=== PATIENT | female | born 1985 | race Caucasian/White ===

== ENCOUNTER 2016-11-15 02:59 | Emergency (ER) | payer SELFPAY ==
[2016-11-15 03:08] VITALS: BP 127/65
--- NOTE | 2016-11-15 03:39 | ED ---
brent Kc Timothy, scribed for Memo Jimenes MD on 11/15/16 at 0327 . HPI Chest Pain - HPI Summary HPI Summary: Breanna Yanez is a 31 yo female presenting [place] [facility] [place] after getting out of a cab. She states she broke her fall with her right hand, but has 7/10 pain in her right chest and chin. She has bruising and abrasions to the palm of her right hand. Pt fell at approximately 0230, and has not taken anything for pain. She denies any pertinent PMHx. - History of Current Complaint Chief Complaint: EDChestWallPain Time Seen by Provider: 11/15/16 03:24 Hx Obtained From: Patient Onset/Duration: Started Minutes Ago Time of Onset: 02:30 Timing: Constant Initial Severity: Moderate Current Severity: Moderate Pain Intensity: 7 Pain Scale Used: 0-10 Numeric Chest Pain Location: Mid Sternal Chest Pain Radiates: No Aggravating Factor(s): Other: - palpation Associated Signs and Symptoms: Positive: Chest Pain - Allergy/Home Medications Allergies/Adverse Reactions: Allergies Allergy/AdvReac Type Severity Reaction Status Date / Time No Known Allergies Allergy Verified 04/12/14 10:28 PMH/Surg Hx/FS Hx/Imm Hx Endocrine/Hematology History: Denies: Hx Diabetes, Hx Thyroid Disease Cardiovascular History: Denies: Hx Hypertension Respiratory History: Denies: Hx Asthma, Hx Chronic Obstructive Pulmonary Disease (COPD) GI History: Denies: Hx Ulcer Sensory History: Reports: Hx Contacts or Glasses Opthamlomology History: Reports: Hx Contacts or Glasses Infectious Disease History: No Infectious Disease History: Denies: Hx Hepatitis, Hx Human Immunodeficiency Virus (HIV), Traveled Outside the [place] in Last 30 Days - Family History Known Family History: Positive: Other - colon cancer - Social History Alcohol Use: Occasionally Substance Use Type: Reports: None Smoking Status (MU): Current Every Day Smoker Type: Cigarettes Amount Used/How Often: 2-3 cigs per day Review of Systems Constitutional: Negative Eyes: Negative ENT: Other - chin pain Cardiovascular: Negative Positive: Chest Pain - chest wall pain Respiratory: Negative Gastrointestinal: Negative Genitourinary: Negative Musculoskeletal: Other - pain in right hand Skin: Negative Neurological: Negative Psychological: Normal All Other Systems Reviewed And Are Negative: Yes Physical Exam Triage Information Reviewed: Yes Vital Signs On Initial Exam: Initial Vitals Temp Pulse Resp BP Pulse Ox 98.2 F 101 16 127/65 98 11/15/16 03:00 11/15/16 03:00 11/15/16 03:00 11/15/16 03:00 11/15/16 03:00 Vital Signs Reviewed: Yes Appearance: Positive: Well-Appearing, No Pain Distress Skin: Positive: Warm Head/Face: Positive: Normal Head/Face Inspection Eyes: Positive: Normal ENT: Positive: Hearing grossly normal Neck: Positive: Supple Respiratory/Lung Sounds: Positive: Clear to Auscultation, Breath Sounds Present , Other - mild ant cwt to palp, no eformity Cardiovascular: Positive: RRR Abdomen Description: Positive: Nontender, Soft Bowel Sounds: Positive: Present Musculoskeletal: Positive: Other - area of tenderness and ecchymosis to rt thenar area, no eformity, from, nvi Neurological: Positive: Alert, Oriented to Person Place, Time, NV Bundle Intact Distally Psychiatric: Positive: Affect/Mood Appropriate Diagnostics - Vital Signs Vital Signs Temp Pulse Resp BP Pulse Ox 11/15/16 03:00 98.2 F 101 16 127/65 98 - Laboratory Lab Statement: Any lab studies that have been ordered have been reviewed, and results considered in the medical decision making process. - Radiology CXR Xray Interpretation: No Acute Changes - No acute disease Radiology Interpretation Completed By: ED Physician R wrist Xray Interpretation: No Acute Changes - No acute disease Radiology Interpretation Completed By: ED Physician Chest Pain Course/Dx - Course Assessment/Plan: Breanna Yanez is a 31 yo female presenting to [facility] [place] a fall in which she hurt her chest and right hand. After review of her negative CXR and negative right wrist XR, she will be discharged home with multiple contusions. - Diagnoses Provider Diagnoses: Multiple contusions Discharge - Discharge Plan Condition: Stable Disposition: HOME Patient Education Materials: Contusion in Adults (ED) Referrals: No Primary Care Phys,NOPCP [Primary Care Provider] - [facility] [Outside] - 2 Days Additional Instructions: Please follow up with your primary care physician regarding your visit to the emergency department today. Return to the emergency department with any new or recurring symptoms. The documentation as recorded by the brent escalante Timothy accurately reflects the service I personally performed and the decisions made by , Memo Jimenes MD.
--- NOTE | 2016-11-15 08:02 | RAD ---
INDICATION: Swelling and bruising to the right palm after a fall COMPARISON: None. TECHNIQUE: 2 views of the right hand were obtained. FINDINGS: The adequately corticated bones are in normal alignment. No significant focal osseous abnormality or fracture is seen. Joint spaces appear maintained. IMPRESSION: Normal right hand radiograph. If the patient's symptoms persist, follow-up imaging is recommended.
--- NOTE | 2016-11-15 08:03 | RAD ---
INDICATION: Fall COMPARISON: Chest x-ray dated July 05, 2007 TECHNIQUE: PA and lateral views of the chest were obtained. FINDINGS: The heart and mediastinum are normal in size and contour. The lungs are grossly clear. There is no evidence of large pleural effusion. Visualized bones are normal for the patient's age. There is no radiographic evidence of free air beneath the diaphragm IMPRESSION: No radiographic evidence of acute cardiopulmonary disease.
== END 2016-11-15 04:11 | disposition home or self-care (01) ==
LOC: ED 02:59
DX: S60.221A Contusion of right hand, initial encounter (principal); R07.89 Other chest pain; F17.210 Nicotine dependence, cigarettes, uncomplicated; W19.XXXA Unspecified fall, initial encounter; Y93.9 Activity, unspecified; Y92.9 Unspecified place or not applicable; Y99.9 Unspecified external cause status
CPT/HCPCS: 71020; 99282

== ENCOUNTER 2017-06-09 10:32 | Emergency (ER) | payer OTHER ==
[2017-06-09 11:42] VITALS: BP 113/70
== END 2017-06-09 12:15 | disposition left against medical advice (07) ==
LOC: ED 10:32
DX: R22.42 Localized swelling, mass and lump, left lower limb (principal); Z53.21 Procedure and treatment not carried out due to patient leaving prior to being seen by health care provider
CPT/HCPCS: 99281

== ENCOUNTER 2019-11-29 15:49 | Emergency (ER) | payer OTHER ==
[2019-11-29 16:23] VITALS: BP 109/76
--- NOTE | 2019-11-29 17:03 | UC ---
Skin Complaint HPI - HPI Summary HPI Summary: 34 y/o female presents to the urgent care c/o c/o "bump" on right forearm that she noticed yesterday. States when she bumps this area her fingers go "numb and tingly". - History of Current Complaint Chief Complaint: UCUpperExtremity Time Seen by Provider: 11/29/19 16:55 Stated Complaint: BUMP ON ARM Hx Obtained From: Patient Hx Last Menstrual Period: on depoprovera Onset/Duration: Gradual Onset, Lasting Days - 1 day, Still Present, Worse Since - today painflul at touch Skin Exposure Onset/Duration: Days Ago - 1 day Timing: Constant Onset Severity: Mild Current Severity: Moderate Pain Intensity: 8 - at touch, 0/10 at rest Pain Scale Used: 0-10 Numeric Location: Discrete - medial aspect ot the Rt fore arm w/ a painful bump Character: Swelling, Raised, Painful Aggravating Factor(s): Touch Alleviating Factor(s): Nothing Associated Signs & Symptoms: Positive: Tenderness - movable painful bump on the RT fore arm. Negative: Fever, Chills, Drainage Related History: Other: - repetitive movements and heavy lifting - Allergy/Home Medications Allergies/Adverse Reactions: Allergies Allergy/AdvReac Type Severity Reaction Status Date / Time No Known Allergies Allergy Verified 11/29/19 16:23 Home Medications: Home Medications Depoprovera* 11/29/19 [History] PMH/Surg Hx/FS Hx/Imm Hx Previously Healthy: Yes - Pt denies PMHX - Surgical History Surgical History: None - Family History Known Family History: Positive: Other - colon cancer - Social History Occupation: Employed Full-time Lives: With Family Alcohol Use: None Substance Use Type: None Smoking Status (MU): Current Some Day Smoker Type: Cigarettes Amount Used/How Often: 2 cig/day Review of Systems All Other Systems Reviewed And Are Negative: Yes Constitutional: Positive: Negative Skin: Positive: Other - painful bump in the Rt forearm since yesterday Eyes: Positive: Negative ENT: Positive: Negative Respiratory: Positive: Negative Cardiovascular: Positive: Negative Gastrointestinal: Positive: Negative Genitourinary: Positive: Negative Motor: Positive: Negative Neurovascular: Positive: Negative Musculoskeletal: Positive: Negative Neurological/Mental Status: Positive: Negative Psychological: Positive: Negative Is Patient Immunocompromised?: No Physical Exam - Summary Physical Exam Summary: Vital Signs Reviewed: Yes General: well appearing, well nourished female in no acute apparent pain distress, sitting comfortably on examining table Eye Exam: Normal Eyes: Positive: Conjunctiva Clear - PERRLA< EOMI, fundi grossly normal ENT: Positive: Normal ENT inspection, Hearing grossly normal, Pharynx normal, TMs normal Neck: Positive: Supple, Nontender, No Lymphadenopathy Respiratory: Positive: Chest non-tender, Lungs clear, Normal breath sounds, No respiratory distress Cardiovascular: Positive: RRR, No Murmur, Pulses Normal, Brisk Capillary Refill Abdomen Description: Positive: Nontender, No Organomegaly, Soft. Negative: CVA Tenderness (R), CVA Tenderness (L) Bowel Sounds: Positive: Present Musculoskeletal: Positive: Strength Intact, ROM Intact, No Edema Neurological: Positive: Alert, Muscle Tone Normal Psychological Exam: Normal Skin: Positive: Positive movable cyst on the medial aspect to the distal Rt fore arm tender to palpation, no erythema, no discharge, pulses WNL, capillary refill brisk, sensation WNL. Triage Information Reviewed: Yes Vital Signs: Initial Vital Signs Temp 98.1 F 11/29/19 16:17 Pulse 95 11/29/19 16:17 Resp 16 11/29/19 16:17 BP 109/76 11/29/19 16:17 Pulse Ox 98 11/29/19 16:17 Course/Dx - Differential Diagnoses - Skin Complaint Differential Diagnoses: Abscess, Cellulitis, Contact Dermatitis, MRSA, Other - ganglion cyst, lipoma, - Diagnoses Provider Diagnosis: Ganglion cyst Discharge ED - Sign-Out/Discharge Documenting (check all that apply): Patient Departure - D/C home All imaging exams completed and their final reports reviewed: Yes - Discharge Plan Condition: Stable Disposition: HOME Patient Education Materials: Ganglion Cysts (ED) Referrals: Juju Rangel MD [Primary Care Provider] - 3 Days Nery Luna MD [Medical Doctor] - 3 Days Additional Instructions: 1-Please take Ibuprofen PO q6-8hrs prns after meals as directed to alleviate pain and swelling. 2-Please apply ice, Avoid heavy lifting or repetitive movement w/ your arm 3- Please f/u with [employer] DR Luna for further management in your fore arm cyst for further evaluation and treatment. 4- Ultrasound was negative - Billing Disposition and Condition Condition: STABLE Disposition: Home
[2019-11-29] MEDS ORDERED: Ibuprofen TAB* 400 MG PO ONE (17:17)
== END 2019-11-29 18:45 | disposition home or self-care (01) ==
LOC: UCEAST 15:49
DX: M67.431 Ganglion, right wrist (principal); F17.210 Nicotine dependence, cigarettes, uncomplicated
CPT/HCPCS: 99211; A9270-GY; G0463